=== PATIENT | female | born 1985 | race Hispanic/Latino ===

== ENCOUNTER 2016-10-17 23:47 | Inpatient (IN) | payer BC ==
[~2016-10-17] VITALS: Ht 160 cm; Wt 84.4 kg
[~2016-10-17 23:47] MED LIST: PRENATAL TABLE1 EACH PO
[2016-10-18] VITALS (21 sets, daily range): BP systolic 125–173; BP diastolic 69–96
[2016-10-18 00:46] LABS: EOSINOPHIL (%) 0.3 % (0-5); HEMATOCRIT 36.3 % (36.0-46.0); IMMATURE GRANULOCYTE (%) 0.4 % (0.0-0.7); IMMATURE GRANULOCYTE COUNT 0.6 K/uL; LYMPHOCYTE COUNT 2.2 K/uL (1.0-2.8); MCH 27.5 PG (29.0-34.0); MCHC 33.6 G/DL (30.0-36.0); MCV 81.9 FL (83-99); MEAN PLAT.VOLUME 11.7 uM^3 (9.5-12.4); MONOCYTE COUNT 0.7 K/uL (0-0.8); NEUTROPHIL (%) 78.2 % (45-76); NEUTROPHIL COUNT 10.5 K/uL (1.8-6.4); PLATELET COUNT 189 K/uL (156-360); RBC DIS.WIDTH-CV 14.6 % (11.8-14.6); RBC DIS.WIDTH-SD 42.2 % (39-53); RED BLOOD COUNT 4.43 M/uL (3.80-5.20); WHITE BLOOD COUNT 13.5 K/uL (4.1-10.2)
[2016-10-19 07:35] LABS: EOSINOPHIL (%) 0.5 % (0-5); EOSINOPHIL COUNT 0.1 K/uL (0-0.3); HEMATOCRIT 28.1 % (36.0-46.0); IMMATURE GRANULOCYTE (%) 0.3 % (0.0-0.7); IMMATURE GRANULOCYTE COUNT 0.1 K/uL; LYMPHOCYTE COUNT 3.3 K/uL (1.0-2.8); MCHC 32.7 G/DL (30.0-36.0); MCV 85.7 FL (83-99); MONOCYTE (%) 5.3 % (3-12); MONOCYTE COUNT 0.8 K/uL (0-0.8); NEUTROPHIL (%) 71.1 % (45-76); NEUTROPHIL COUNT 10.4 K/uL (1.8-6.4); PLATELET COUNT 167 K/uL (156-360); RBC DIS.WIDTH-CV 15.3 % (11.8-14.6); RBC DIS.WIDTH-SD 47.3 % (39-53); WHITE BLOOD COUNT 14.6 K/uL (4.1-10.2)
[2016-10-19 07:36] LABS: RED BLOOD COUNT 3.28 M/uL (3.80-5.20)
[2016-10-19 07:42] VITALS: BP 125/75
[2016-10-19] MEDS ORDERED: FERROCITE324 MG PO (10:41)
[2016-10-19 14:02] VITALS: BP 117/75
== END 2016-10-19 16:15 | disposition home or self-care (01) | DRG 775 ==
LOC: LDRP-OP 23:47 → 2WEST 23:48 → LDRP-OP 10-19 15:18 → 2WEST 10-19 16:15 → LDRP-OP 11-23 12:15
PROVIDERS: Obstetrics & Gynecology
PROC: 00HU33Z Insertion of Infusion Device into Spinal Canal, Percutaneous Approach (ICD-10-PCS; principal; 2016-10-18)
PROC: 10E0XZZ Delivery of Products of Conception, External Approach (ICD-10-PCS; principal; 2016-10-18)
PROC: 10907ZC Drainage of Amniotic Fluid, Therapeutic from Products of Conception, Via Natural or Artificial Opening (ICD-10-PCS; principal; 2016-10-18)
PROC: 10D07Z6 Extraction of Products of Conception, Vacuum, Via Natural or Artificial Opening (ICD-10-PCS; principal; 2016-10-18)
PROC: 0KQM0ZZ Repair Perineum Muscle, Open Approach (ICD-10-PCS; principal; 2016-10-18)
PROC: 3E0S3CZ (ICD-10-PCS; principal; 2016-10-18)
DX: O70.1 Second degree perineal laceration during delivery (principal); D62 Acute posthemorrhagic anemia; O99.214 Obesity complicating childbirth; Z37.0 Single live birth; E66.9 Obesity, unspecified; Z3A.39 39 weeks gestation of pregnancy; Z68.25 Body mass index [BMI] 25.0-25.9, adult; O99.02 Anemia complicating childbirth; O99.814 Abnormal glucose complicating childbirth
CPT/HCPCS: 85025; 86850; 86900; 86901; C1755; G0378; J2795; J3010; J7120

== ENCOUNTER 2018-03-06 11:27 | Emergency (ER) | payer BC ==
[~2018-03-06] VITALS: Ht 160 cm; Wt 70.9 kg
[~2018-03-06 11:27] MED LIST changes: +FERROCITE324 MG PO
[2018-03-06 11:56] LABS: HEMATOCRIT 37.6 % (36.0-46.0); HEMOGLOBIN 12.7 G/DL (11.9-15.5); MCH 29.8 PG (29.0-34.0); MCHC 33.8 G/DL (30.0-36.0); MCV 88.3 FL (83-99); PLATELET COUNT 225 K/uL (156-360); RBC DIS.WIDTH-CV 13.1 % (11.8-14.6); RBC DIS.WIDTH-SD 41.7 % (39-53); RED BLOOD COUNT 4.26 M/uL (3.80-5.20)
[2018-03-06 12:05] LABS: ALBUMIN 4.2 g/dL (3.2-4.8)
[2018-03-06 12:06] LABS: CHLORIDE 105 mEq/L (99-109); SODIUM 139 mEq/L (136-147)
[2018-03-06 12:08] LABS: GLUCOSE 94 mg/dL (70-99); TOTAL PROTEIN 7.2 g/dL (6.4-8.3)
[2018-03-06 12:10] LABS: TOTAL BILIRUBIN 0.7 mg/dL (0.0-1.0)
[2018-03-06 12:10] LABS: APPEARANCE SL.HAZY ((CLEAR)); BILIRUBIN NEGATIVE; BLOOD LARGE; COLOR YELLOW ((YELLOW)); GLUCOSE (STRIP) NEGATIVE; KETONES NEGATIVE; LEUKOCYTES TRACE; NITRITE NEGATIVE; PROTEIN (STRIP) 30; SPECIFIC GRAVITY 1.014 (1.000-1.030); UROBILINOGEN 0.2 MG/DL (0.2-1.0)
[2018-03-06 12:11] LABS: ALKALINE PHOSPHATASE 92 IU/L (3-129)
[2018-03-06 12:12] LABS: CREATININE 0.8 mg/dL (0.6-1.3); GFR ESTIMATE (CALCULATED) > 59 mL/min/
[2018-03-06 12:13] LABS: AST (GOT) 18 IU/L (2-34); UREA NITROGEN (BUN) 13 mg/dL (9-23)
[2018-03-06 12:15] LABS: ALT (GPT) 42 IU/L (3-49)
[2018-03-06 12:20] LABS: QUANTITATIVE HCG < 4.0 MIU/ML
[2018-03-06 12:43] LABS: RED BLOOD CELLS 20-30 /HPF (0-5); WHITE BLOOD CELLS RARE /HPF (0-5)
[2018-03-06 12:45] LABS: BACTERIA RARE /HPF; EPITHELIAL CELLS RARE /HPF; MUCUS NONE SEEN /LPF; UCUL ADDED? NO
[2018-03-06 14:06] LABS: SOURCE SWAB
[2018-03-06] MEDS ORDERED: NAPROXEN500 MG PO (17:15)
[2018-03-06 17:26] VITALS: BP 121/78
== END 2018-03-06 17:20 | disposition home or self-care (01) ==
LOC: EME 11:27
PROVIDERS: Physician Assistant Medical
DX: D25.9 Leiomyoma of uterus, unspecified (principal); Z97.5 Presence of (intrauterine) contraceptive device; Z86.011 Personal history of benign neoplasm of the brain
CPT/HCPCS: 74176; 76856; 80053; 81003; 84702; 85027; 87210; 87491; 87591; 99281; 99284; J1885